=== PATIENT | female | born 1995 | race Caucasian/White ===

== ENCOUNTER 2020-11-18 05:34 | Inpatient (IN) | payer OTHER ==
[2020-11-18 06:26] LABS: HEMOGLOBIN 11.9 gm/dl (12.3-15.3); RED BLOOD COUNT 3.74 M/UL (4.00-5.10); WHITE BLOOD COUNT 13.6 K/UL (4.5-11.0)
[2020-11-19 07:03] LABS: HEMOGLOBIN 9.6 gm/dl (12.3-15.3)
[2020-11-19] MEDS ORDERED: DOCUSATE SODIU100 MG PO (12:20)
[2020-11-19] MEDS ORDERED: IBUPROFEN800 MG PO (12:20)
[2020-11-19] MEDS ORDERED: HYDROCODONE-AC1 EAC1 PO (12:20)
== END 2020-11-19 22:02 | disposition home or self-care (01) | DRG 788 ==
LOC: OB 05:34
PROVIDERS: ADMIT Obstetrics & Gynecology
PROC: 10H07YZ Insertion of Other Device into Products of Conception, Via Natural or Artificial Opening (ICD-10-PCS; 2020-11-18)
PROC: 10H073Z Insertion of Monitoring Electrode into Products of Conception, Via Natural or Artificial Opening (ICD-10-PCS; 2020-11-18)
PROC: 4A1H7CZ Monitoring of Products of Conception, Cardiac Rate, Via Natural or Artificial Opening (ICD-10-PCS; 2020-11-18)
PROC: 10D00Z1 Extraction of Products of Conception, Low, Open Approach (ICD-10-PCS; principal; 2020-11-18 15:29)
DX: O62.0 Primary inadequate contractions (principal); Z37.0 Single live birth; Z3A.39 39 weeks gestation of pregnancy; O77.0 Labor and delivery complicated by meconium in amniotic fluid; O33.9 Maternal care for disproportion, unspecified; Z20.822 Contact with and (suspected) exposure to COVID-19
CPT/HCPCS: 36415; 82800; 85014; 85018; 85025; 90707; 90715; C9113; J0690; J1885; J2001; J2210; J2274; J2300; J2590; J2795; J7120